=== PATIENT | female | born 1960 | race Caucasian/White ===

== ENCOUNTER 2020-01-28 11:29 | Outpatient (CLI) | payer OTHER ==
--- NOTE | 2020-01-28 13:12 | MMO ---
Bilateral MAMMO Bilat Screen [facility]. CLINICAL HISTORY: Patient is 59 years old and is seen for screening. The patient has no family history of breast cancer. The patient has no personal history of cancer. VIEWS: The views performed were: bilateral craniocaudal with tomosynthesis and bilateral mediolateral oblique with tomosynthesis. FILMS COMPARED: The present examination has been compared to a prior imaging study performed at [facility] on 04/25/2012. This study has been interpreted with the assistance of computer-aided detection. MAMMOGRAM FINDINGS: There are scattered fibroglandular densities. There are no suspicious masses, suspicious calcifications, or new areas of architectural distortion. IMPRESSION: THERE IS NO MAMMOGRAPHIC EVIDENCE OF MALIGNANCY. A ROUTINE FOLLOW-UP MAMMOGRAM IN 1 YEAR IS RECOMMENDED. THE RESULTS OF THIS EXAM WERE SENT TO THE PATIENT. ACR BI-RADS Category 1 - Negative MAMMOGRAPHY NOTE: 1. A negative mammogram report should not delay a biopsy if a dominant of clinically suspicious mass is present. 2. Approximately 10% to 15% of breast cancers are not detected by mammography. 3. Adenosis and dense breasts may obscure an underlying neoplasm. Reported by: Mic RANGEL Electonically Signed: [id number]
== END 2020-01-28 11:30 | disposition home or self-care (01) ==
LOC: BICMAMMO 11:29
PROVIDERS: ATTEND Internal Medicine
DX: Z12.31 Encounter for screening mammogram for malignant neoplasm of breast (principal)
CPT/HCPCS: 77063; 77067

== ENCOUNTER 2021-05-12 14:48 | Outpatient (CLI) | payer OTHER ==
[2021-05-12 16:38] LABS: #Basophils 0.1 10x3/uL (0.0-0.2); #Eosinphils 0.1 10x3/uL (0.0-0.5); #Monocytes 0.7 10x3/uL (0.0-1.1); #Neutrophils 5.4 10x3/uL (1.5-8.4); %Basophils 0.6 % (0.0-2.0); %Eosinophils 0.6 % (0.0-6.0); %Lymphocytes 24.9 % (18.0-47.0); %Monocytes 8.7 % (0.0-10.0); Hemoglobin 13.8 g/dL (12.0-15.5); Mean Corpuscular HGB CONC 33.2 g/dL (32.0-36.0); Mean Corpuscular Hemoglobin 29.2 pg (27.0-33.0); Mean Corpuscular Volume 88.1 fl (81.6-98.3); Mean Platelet Volume 9.8 fl (7.4-10.4); Platelet Count 366 10x3/uL (150-450); RBC Distribution Width 14.4 % (11.5-14.5); Red Blood Cell (RBC) Count 4.72 10x6/uL (3.90-5.03); White Blood Cell (WBC) Count 8.3 10x3/uL (3.5-10.5)
[2021-05-12 16:47] LABS: Prothrombin Time 10.6 sec (9.5-12.1)
[2021-05-12 16:51] LABS: Anion Gap 16 mmol/L (10-20); BUN (Urea Nitrogen) 11 mg/dL (9.8-20.1); Calc. Creatinine Clearance 0 mL/min (70-130); Calcium 9.9 mg/dL (7.8-10.44); Carbon Dioxide 24 mmol/L (22-29); Chloride 98 mmol/L (98-107); Glucose 96 mg/dL (70-105); Potassium 4.5 mmol/L (3.5-5.1); Sodium 133 mmol/L (136-145)
[2021-05-13 08:57] LABS: SARS-CoV-2 PCR by NAA Not Detected (NotDetected)
== END 2021-05-12 14:49 | disposition home or self-care (01) ==
LOC: LABBT 14:48
PROVIDERS: ATTEND Orthopaedic Surgery
DX: Z01.818 Encounter for other preprocedural examination (principal); M16.11 Unilateral primary osteoarthritis, right hip; Z20.822 Contact with and (suspected) exposure to COVID-19
CPT/HCPCS: 80048; 85025; 85610; 87081; 93005; 93010; U0003; U0005

== ENCOUNTER 2021-05-17 05:18 | Inpatient (IN) | payer OTHER ==
[2021-05-04 14:52] VITALS: BMI 29.1
[2021-05-17] MEDS ORDERED: Sodium Chloride 0.9% 100 ML ONE (06:06)
[2021-05-17] MEDS ORDERED: Vancomycin 1 GM/200 ML BAG ONE (06:06)
[2021-05-17] MEDS ORDERED: Tranexamic Acid 1,000 MG/10 ML VIAL ONE (06:06)
[2021-05-17] MEDS ORDERED: Fentanyl 100 MCG/2 ML VIAL ONE (06:42)
[2021-05-17] MEDS ORDERED: Midazolam HCl 2 mg/2 ml Vial ONE ×2 (06:42→07:41)
[2021-05-17] MEDS ORDERED: Bupivacaine PF 0.5% 30 ML VIAL ONE (06:45)
[2021-05-17] MEDS ORDERED: Scopolamine 1.5 mg/72 hour Patch ONE (06:57)
[2021-05-17] MEDS ORDERED: Famotidine/PF 20 mg/2ml Vial ONE (06:57)
[2021-05-17] MEDS ORDERED: ceFAZolin 2 GM/Dextrose 50 ML IVPB ONE ×2 (07:03→16:30)
[2021-05-17] MEDS ORDERED: Ketamine 50 MG/ML (10ML VIAL) ONE (07:24)
[2021-05-17] MEDS ORDERED: PROPOFOL 200 MG/20 ML VIAL ONE (07:30)
[2021-05-17] MEDS ORDERED: Bupivacaine HCl 0.5%/Epinephrine 1:200,000/PF 30 ml Vial ONE (07:30)
[2021-05-17] MEDS ORDERED: ePHEDrine 50 MG/ML VIAL ONE (07:30)
[2021-05-17] MEDS ORDERED: Ondansetron PF 4 MG/2 ML Vial ONE (07:30)
[2021-05-17] MEDS ORDERED: Metoclopramide HCl 10 MG/2 ML VIAL ONE (07:30)
[2021-05-17] MEDS ORDERED: Propofol 500 MG/50 ML VIAL ONE (08:32)
[2021-05-17] MEDS ORDERED: HYDROcodone/Acetaminophen 5/325 mg Tablet ONE ×3 (11:26→17:20)
[2021-05-17] MEDS ORDERED: Morphine 4 MG/ML VIAL ONE (12:42)
[2021-05-17] MEDS ORDERED: Acetaminophen 325 MG TAB PO PRN (16:21)
[2021-05-17] MEDS ORDERED: HYDROcodone/Acetaminophen 10/325 mg Tablet PO PRN (16:21)
[2021-05-17] MEDS ORDERED: Zolpidem Tartrate 5 MG TAB PO PRN (16:21)
[2021-05-17] MEDS ORDERED: diphenhydrAMINE 25 MG CAP PO PRN (16:21)
[2021-05-17] MEDS ORDERED: Ondansetron PF 4 MG/2 ML Vial IVP PRN (16:21)
[2021-05-17] MEDS ORDERED: Ondansetron ODT 4 MG TAB ONE (18:19)
[2021-05-17] MEDS ORDERED: Atorvastatin Calcium 40 MG TAB PO SCH (21:00)
[2021-05-17] MEDS ORDERED: Gabapentin 300 MG CAP PO SCH (21:00)
[2021-05-17] MEDS: Aspirin 81 mg Enteric Coated Tablet PO SCH (21:24)
[2021-05-17] MEDS: CeleCOXIB 100 MG CAP PO SCH (21:25)
[2021-05-17] MEDS: ceFAZolin 2 GM/Dextrose 50 ML 2 GM in Premix Bag 1 BAG IVPB SCH (22:45)
[2021-05-17] MEDS: Sodium Chloride 0.9% 1,000 ML IV SCH (22:46)
[2021-05-18] MEDS: Sodium Chloride 0.9% 1,000 ML IV SCH ×2 (02:52→13:51)
[2021-05-18] MEDS: ceFAZolin 2 GM/Dextrose 50 ML 2 GM in Premix Bag 1 BAG IVPB SCH (03:21)
[2021-05-18] MEDS: HYDROcodone/Acetaminophen 10/325 mg Tablet PO PRN ×2 (07:23→13:52)
[2021-05-18] MEDS ORDERED: FLU VACC QS2021-22(6MOS UP)/PF 60 MCG/0.5 ML SYRINGE IM ONE (09:00)
[2021-05-18] MEDS ORDERED: Senokot S 8.6-50 MG TAB PO SCH (09:00)
[2021-05-18] MEDS ORDERED: Amlodipine 5 MG TAB PO SCH (09:00)
[2021-05-18] MEDS ORDERED: Multivitamin W/ Minerals 1 TAB PO SCH (09:00)
[2021-05-18] MEDS ORDERED: Ferrous Gluconate 324 MG TAB PO SCH (09:00)
[2021-05-18] MEDS ORDERED: Aspirin 81 mg Enteric Coated Tablet PO SCH (09:00)
[2021-05-18] MEDS ORDERED: Loratadine 10 MG TAB PO SCH (09:00)
[2021-05-18] MEDS: Aspirin 81 mg Enteric Coated Tablet PO SCH (10:54)
[2021-05-18] MEDS: CeleCOXIB 100 MG CAP PO SCH (10:56)
[2021-05-18 12:42] VITALS: BP 121/72; TEMP 98.5
== END 2021-05-18 14:45 | disposition home or self-care (01) | DRG 470 ==
LOC: SDC 05:18 → SURG A 19:40
PROVIDERS: ADMIT Orthopaedic Surgery; ATTEND Orthopaedic Surgery
PROC: 0SR90J9 Replacement of Right Hip Joint with Synthetic Substitute, Cemented, Open Approach (ICD-10-PCS; principal; 2021-05-17)
DX: M16.11 Unilateral primary osteoarthritis, right hip (principal); Z20.822 Contact with and (suspected) exposure to COVID-19; I10 Essential (primary) hypertension; E78.5 Hyperlipidemia, unspecified; J30.2 Other seasonal allergic rhinitis; F41.9 Anxiety disorder, unspecified; Z88.8 Allergy status to other drugs, medicaments and biological substances; Z88.1 Allergy status to other antibiotic agents; Z79.899 Other long term (current) drug therapy; Z79.82 Long term (current) use of aspirin
CPT/HCPCS: C1776; J0690; J2250; J2270; J2405; J2704; J2765; J3010; J3370; J3490; Q0162; S0020; S0028

== ENCOUNTER 2022-10-19 19:20 | Emergency (ER) | payer OTHER, BC ==
[2022-10-19 20:01] LABS: #Eosinphils 0.1 thou/uL (0.0-0.7); #Monocytes 0.6 thou/uL (0.11-0.59); %Basophils 0.6 % (0.0-1.0); %Eosinophils 1.9 % (0.0-10.0); %Lymphocytes 44.1 % (21.0-51.0); %Monocytes 8.6 % (0.0-10.0); %Neutrophils 44.2 % (42.0-75.0); Hemoglobin 12.5 g/dL (12.0-16.0); Mean Corpuscular HGB CONC 34.4 g/dL (32.0-36.0); Mean Corpuscular Hemoglobin 29.7 pg (27.0-31.0); Mean Corpuscular Volume 86.2 fl (78.0-98.0); Mean Platelet Volume 9.7 fL (7.4-10.4); Platelet Count 250 10x3/uL (130-400); RBC Distribution Width 14.7 % (11.5-14.5); Red Blood Cell (RBC) Count 4.21 mill/uL (4.20-5.40); White Blood Cell (WBC) Count 6.7 10x3/uL (4.8-10.8)
[2022-10-19] MEDS ORDERED: Ketorolac Tromethamine 30 MG/ML VIAL ONE (20:13)
[2022-10-19] MEDS ORDERED: Acetaminophen 500 MG TAB ONE (20:15)
[2022-10-19 20:29] LABS: ALT (SGPT) 25 U/L (8-55); AST (SGOT) 31 U/L (5-34); Albumin 4.3 g/dL (3.4-4.8); Alkaline Phosphatase 91 U/L (40-110); Anion Gap 15 mmol/L (10-20); BUN (Urea Nitrogen) 17 mg/dL (9.8-20.1); Bilirubin, Total 0.4 mg/dL (0.2-1.2); Calc. Creatinine Clearance 0 mL/min (70-130); Carbon Dioxide 22 mmol/L (23-31); Chloride 104 mmol/L (98-107); Estimated GFR 69; Globulin 2.7 g/dL (2.4-3.5); Glucose 114 mg/dL (80-115); Sodium 137 mmol/L (136-145)
== END 2022-10-19 20:45 | disposition home or self-care (01) ==
LOC: ERS 19:20
DX: S20.212A Contusion of left front wall of thorax, initial encounter (principal); I10 Essential (primary) hypertension; E78.00 Pure hypercholesterolemia, unspecified; V89.2XXA Person injured in unspecified motor-vehicle accident, traffic, initial encounter
CPT/HCPCS: 71045; 80053; 84484; 85025; 93005; 96374; J1885

== ENCOUNTER 2023-06-16 14:53 | Outpatient (CLI) | payer BC | END 2023-06-16 14:54 | disposition home or self-care (01) | LOC: BICMAMMO 14:53 | PROVIDERS: ATTEND Internal Medicine | DX: Z12.31 Encounter for screening mammogram for malignant neoplasm of breast (principal); N64.89 Other specified disorders of breast | CPT/HCPCS: 77063; 77067 ==

== ENCOUNTER 2023-06-22 14:26 | Outpatient (CLI) | payer BC | END 2023-06-22 14:27 | disposition home or self-care (01) | LOC: BICMAMMO 14:26 | PROVIDERS: ATTEND Internal Medicine | DX: N64.89 Other specified disorders of breast (principal); N60.01 Solitary cyst of right breast | CPT/HCPCS: G0279 ==